=== PATIENT | female | born 1950 | race American Indian/Alaskan Native ===

== ENCOUNTER 2016-08-04 10:09 | Emergency (ER) | payer OTHER, MEDICARE, MEDICAID ==
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
--- NOTE | 2016-08-04 13:35 | Cat Scan Report ---
CT scan of head without contrast: Findings: Ventricles are normal in size and midline in location. No evidence of acute ischemia, hemorrhage or mass. No extra-axial fluid collection. Normal base of the cerebellum. Normal sinuses and mastoid air cells. Impression: No acute intracranial abnormality.
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
[2016-08-04 14:17] VITALS: BP 190/96
== END 2016-08-04 14:16 | disposition home or self-care (01) ==
LOC: ED 10:09
DX: S16.1XXA Strain of muscle, fascia and tendon at neck level, initial encounter (principal); S29.019A Strain of muscle and tendon of unspecified wall of thorax, initial encounter; I10 Essential (primary) hypertension; K21.9 Gastro-esophageal reflux disease without esophagitis; M19.90 Unspecified osteoarthritis, unspecified site; V89.2XXA Person injured in unspecified motor-vehicle accident, traffic, initial encounter; Y93.89 Activity, other specified; Y99.9 Unspecified external cause status; Y92.410 Unspecified street and highway as the place of occurrence of the external cause
CPT/HCPCS: 70450; 72072; 72125

== ENCOUNTER 2017-01-23 11:38 | Outpatient (CLI) | payer MEDICARE ==
--- NOTE | 2017-01-23 16:36 | Mammography Report ---
BILATERAL DIGITAL SCREENING MAMMOGRAM with CAD: 01/23/17 11:38:00 CLINICAL: Routine screening. COMPARISON:01/03/16 FINDINGS: The breasts are almost entirely fatty.Right upper outer biopsy clip. No mass, architectural distortion or suspicious calcifications. IMPRESSION: No mammographic evidence of malignancy. BI-RADS CATEGORY: 2 -- Benign RECOMMENDATION: Routine mammographic screening in one year. COMMENT: Patient follow-up letters are generated by our [employer] application.
== END 2017-01-23 11:39 | disposition home or self-care (01) ==
LOC: SPVWC 11:38
PROVIDERS: ATTEND General Practice
DX: Z12.31 Encounter for screening mammogram for malignant neoplasm of breast (principal)
CPT/HCPCS: 77067; G0202

== ENCOUNTER 2017-09-18 07:49 | Emergency (ER) | payer MEDICARE ==
--- NOTE | 2017-09-18 10:29 | Emergency Department Report ---
ED Upper Extremity Inj HPI - General Chief Complaint: Shoulder Injury Stated Complaint: FALL A MONTH AGO Time Seen by Provider: 09/18/17 09:02 Source: patient Mode of arrival: Ambulatory Limitations: No Limitations - History of Present Illness Initial Comments: This is a 67-year-old male nontoxic, well nourished in appearance, no acute signs of distress presents to the ED with c/o of left shoulder pain status post fall that occurred a couple of weeks ago. Patient stated it has been followed up with a orthopedic doctor and had normal x-ray results and stated that she received a steroid injection shot and some pain medication. She stated that symptoms of pain has not resolved. Patient denies any MRI done. She denies that orthopedic's concern about a rotator cuff tear. Patient stated that he did not have any trauma to the head or any other extremities. Patient denies any joint redness, joint swelling, fever, chills, nausea, vomiting, chest pain or shortness breath. Patient denies abnormal or decreased gait. Patient states allergies to penicillin and latex. Past medical history includes COPD and HIV. MD Complaint: Injury to:: left, shoulder -: week(s) Other Extremity Injury: Shoulder: Left Other Injuries: none Place: home Improves With: immobilization Worsens With: movement of extremity Context: fall, direct blow Associated Symptoms: denies other symptoms. denies: weakness, numbness, neck pain, suspects foreign body, nausea/vomiting, heard/felt popping sensat - Related Data Home Medications Medication Instructions Recorded Confirmed Last Taken Hydrochlorothiazide [HCTZ] 25 mg PO QDAY 05/17/16 05/17/16 05/17/16 09:00 clonazePAM [ Klonopin] 0.5 mg PO BID PRN 05/17/16 05/17/16 05/16/16 23:30 Previous Rx's Medication Instructions Recorded Last Taken Type Cyclobenzaprine [Flexeril] 10 mg PO TID PRN #20 tablet 08/04/16 Unknown Rx Naproxen [Naprosyn] 500 mg PO BID #30 tablet 08/04/16 Unknown Rx Acetaminophen [Tylenol Arthritis] 650 mg PO Q8H PRN #30 tablet.er 09/18/17 Unknown Rx Allergies Allergy/AdvReac Type Severity Reaction Status Date / Time latex Allergy Hives Verified 09/18/17 08:01 Penicillins Allergy Hives Verified 09/18/17 08:01 ED Review of Systems ROS: Stated complaint: FALL A MONTH AGO Other details as noted in HPI Constitutional: denies: chills, fever Eyes: denies: eye pain, eye discharge, vision change ENT: denies: ear pain, throat pain Respiratory: denies: cough, shortness of breath, wheezing Cardiovascular: denies: chest pain, palpitations Endocrine: no symptoms reported Gastrointestinal: denies: abdominal pain, nausea, diarrhea Genitourinary: denies: urgency, dysuria, discharge Musculoskeletal: arthralgia. denies: back pain, joint swelling Skin: denies: rash, lesions Neurological: denies: headache, weakness, paresthesias Psychiatric: denies: anxiety, depression Hematological/Lymphatic: denies: easy bleeding, easy bruising ED Past Medical Hx - Past Medical History Hx Hypertension: Yes Hx GERD: Yes Hx Renal Disease: No Hx Sickle Cell Disease: No Hx Arthritis: Yes Hx Asthma: No Hx COPD: No Hx HIV: No - Surgical History Hx Breast Surgery: Yes (AUGMENTATION 2007) Additional Surgical History: gastric bypass - Social History Smoking Status: Never Smoker Substance Use Type: Alcohol - Medications Home Medications: Home Medications Medication Instructions Recorded Confirmed Last Taken Type Hydrochlorothiazide [HCTZ] 25 mg PO QDAY 05/17/16 05/17/16 05/17/16 09:00 History clonazePAM [ Klonopin] 0.5 mg PO BID PRN 05/17/16 05/17/16 05/16/16 23:30 History Cyclobenzaprine [Flexeril] 10 mg PO TID PRN #20 tablet 08/04/16 Unknown Rx Naproxen [Naprosyn] 500 mg PO BID #30 tablet 08/04/16 Unknown Rx Acetaminophen [Tylenol Arthritis] 650 mg PO Q8H PRN #30 tablet.er 09/18/17 Unknown Rx ED Physical Exam - General Limitations: No Limitations General appearance: alert, in no apparent distress - Head Head exam: Present: atraumatic, normocephalic - Eye Eye exam: Present: normal appearance Pupils: Present: normal accommodation - ENT ENT exam: Present: normal exam, mucous membranes moist - Neck Neck exam: Present: normal inspection, full ROM. Absent: tenderness, meningismus - Respiratory Respiratory exam: Present: normal lung sounds bilaterally. Absent: respiratory distress, wheezes, rales, rhonchi, stridor, chest wall tenderness, accessory muscle use, decreased breath sounds, prolonged expiratory - Cardiovascular Cardiovascular Exam: Present: regular rate, normal rhythm, normal heart sounds. Absent: bradycardia, tachycardia, irregular rhythm, systolic murmur, diastolic murmur, rubs, gallop - GI/Abdominal GI/Abdominal exam: Present: soft, normal bowel sounds - Extremities Exam Extremities exam: Present: normal inspection, full ROM, tenderness, normal capillary refill. Absent: joint swelling - Expanded Upper Extremity Exam Left General: Present: normal inspection Shoulder Exam: Present: normal inspection, full ROM, tenderness. Absent: swelling, abrasion, laceration, ecchymosis, deformity, dislocation, erythema, tenderness over AC joint Upper Arm exam: Present: normal inspection, full ROM. Absent: tenderness, swelling Elbow exam: Present: normal inspection, full ROM. Absent: tenderness, swelling Forearm Wrist exam: Present: normal inspection, full ROM. Absent: tenderness, swelling Hand Wrist exam: Present: normal inspection, full ROM. Absent: tenderness, swelling Neuro motor exam: Present: wrist extension intact, thumb opposition intact, thumb IP flexion intact, thumb adduction intact, fingers 2-5 abduction intact Neurosensory exam: Present: 2-point discrimination, radial nerve intact, ulnar nerve intact, median nerve intact Vascular: Present: vascular compromise, normal capillary refill, radial pulse, brachial pulse, ulnar pulse - Back Exam Back exam: Present: normal inspection, full ROM. Absent: tenderness, CVA tenderness (R), CVA tenderness (L), muscle spasm, paraspinal tenderness, vertebral tenderness, rash noted - Neurological Exam Neurological exam: Present: alert, oriented X3, normal gait - Psychiatric Psychiatric exam: Present: normal affect, normal mood - Skin Skin exam: Present: warm, dry, intact, normal color. Absent: rash ED Course Vital Signs 09/18/17 08:01 Temperature 98.7 F Pulse Rate 88 Respiratory 16 Rate Blood Pressure 167/86 O2 Sat by Pulse 98 Oximetry - Reevaluation(s) Reevaluation #1: 09/18/17 10:27 Patient is speaking in full sentences with no signs of distress noted. ED Medical Decision Making - Medical Decision Making This is a 67-year-old female that presents with left shoulder strain. Patient is stable and was examined by me. I referred patient to an orthopedic doctor for further evaluation for possible MRI. X-ray has been obtained and dictated by the radiologist Dr. Ashton and report was faxed with no fractures and arthritis. Patient is notified of the x-ray report with noted by the patient. Patient does have normal gait with no tenderness and no joint swelling. No ecchymosis. no joint redness or swelling. Not warm to touch. No signs of cellulites present. Patient received a shoulder sling. Patient was instructed to RICE therapy. Patient received Motrin for pain. Patient is discharged with Tylenol arthritis. At time of discharge, the patient does not seem toxic or ill in appearance. No acute signs of distress noted. Patient agrees to discharge treatment plan of care. No further questions noted by the patient. Critical care attestation.: If time is entered above; I have spent that time in minutes in the direct care of this critically ill patient, excluding procedure time. ED Disposition Clinical Impression: Left shoulder strain Qualifiers: Encounter type: initial encounter Qualified Code(s): S46.912A - Strain of unspecified muscle, fascia and tendon at shoulder and upper arm level, left arm , initial encounter Disposition: DC- TO HOME OR SELFCARE Is pt being admited?: No Does the pt Need Aspirin: No Condition: Stable Instructions: Rotator Cuff Injury (ED), RICE Therapy (ED) Additional Instructions: Follow-up with a orthopedic doctor in 3-5 days or if symptoms worsen and continue return to emergency room as soon as possible. Prescriptions: Acetaminophen [Tylenol Arthritis] 650 mg PO Q8H PRN #30 tablet.er PRN Reason: Pain Referrals: ALEXEI MCGILL MD [Primary Care Provider] - 3-5 Days ETHAN GANDHI MD [Referring] - 3-5 Days JANNY MCDANIEL MD [Staff Physician] - 3-5 Days [facility] [Outside] - 3-5 Days
[2017-09-18 10:39] VITALS: BP 175/91
--- NOTE | 2017-09-19 12:14 | XRay Report ---
Left shoulder 3 views: History: Shoulder pain. Findings: Mild arthritic changes a.c. joint and glenohumeral joint. No fracture dislocation or soft tissue calcification. Impression: Mild arthritic changes left shoulder.
== END 2017-09-18 10:39 | disposition home or self-care (01) ==
LOC: ED 07:49
DX: S46.912A Strain of unspecified muscle, fascia and tendon at shoulder and upper arm level, left arm, initial encounter (principal); W18.30XA Fall on same level, unspecified, initial encounter; Y93.89 Activity, other specified; Y92.89 Other specified places as the place of occurrence of the external cause; Y99.8 Other external cause status

== ENCOUNTER 2017-10-02 10:04 | Outpatient (CLI) | payer MEDICARE ==
--- NOTE | 2017-10-02 12:27 | Magnetic Resonance Report ---
MRI UPPER EXTREMITY JOINT LEFT WITHOUT CONTRAST HISTORY: Pain in left shoulder. TECHNIQUE: Multiple T1 and T2-weighted images with and without fat suppression. COMPARISON: Left shoulder films dated 09/18/17. FINDINGS: MRI demonstrates a focal full-thickness tear in the distal, anterior supraspinatus tendon measuring approximately 8 mm in diameter. This appears to involve the rotator cuff interval. The infraspinatus, teres minor and subscapularis tendons appear intact. The biceps tendon and its anchor upon the superior labrum are intact. No gross labral defect or SLAP lesion. The bone marrow signal throughout the shoulder is within normal limits. Mild osteoarthritic changes are noted at the glenohumeral joint and acromioclavicular joint. No convincing findings of impingement. Small joint effusion and small fluid in the subacromial/subdeltoid bursa are noted. IMPRESSION: Focal full-thickness tear in the distal supraspinatus tendon as outlined above. Mild osteoarthritis.
== END 2017-10-02 10:05 | disposition home or self-care (01) ==
LOC: MRI 10:04
PROVIDERS: ATTEND Orthopaedic Surgery
DX: M19.012 Primary osteoarthritis, left shoulder (principal); K21.9 Gastro-esophageal reflux disease without esophagitis

== ENCOUNTER 2017-11-15 08:41 | Day surgery (SDC) | payer MEDICARE ==
[~2017-11-15 08:41] MED LIST: VANCOMYCIN PHARMACY TO DOSE IV SCH; VANCOMYCIN/NS 1 GM/250 ML 1 GM/250 ML BAG IV SCH; VERSED IV NR
[2017-11-15] MEDS: LACTATED RINGERS 1,000 ML IV SCH ×2 (09:25→15:53)
--- NOTE | 2017-11-15 09:58 | Anesthesia Day of Surgery ---
Anesthesia Day of Surgery - Day of Surgery Patient Examined: Yes Patient H&P Reviewed: Yes Patient is NPO: Yes
--- NOTE | 2017-11-15 09:58 | Anesthesia Consultation ---
Anesthesia Consult and Med Hx Date of service: 11/15/17 - Airway Anesthetic Teeth Evaluation: Poor, Partials ROM Head & Neck: Adequate Mental/Hyoid Distance: Adequate Mallampati Class: Class II Intubation Access Assessment: Probably Good - Pulmonary Exam CTA: Yes - Cardiac Exam Cardiac Exam: RRR - Pre-Operative Health Status ASA Pre-Surgery Classification: ASA3 Proposed Anesthetic Plan: General Nerve Block: IS - Pulmonary Hx Smoking: No Hx Asthma: No COPD: No Hx Sleep Apnea: No (OC PRE SCREEN LOW RISK) - Cardiovascular System Hx Hypertension: Yes (ONLY ON HCTZ PRN FOR EDEMA) - Central Nervous System Hx Psychiatric Problems: No - Gastrointestinal Hx Gastroesophageal Reflux Disease: No (h/o gastric bypass) - Endocrine Hx Renal Disease: No - Hematic Hx Anemia: No Hx Sickle Cell Disease: No - Other Systems Hx Alcohol Use: No Hx Substance Use: No Hx Cancer: No Hx Obesity: No
[2017-11-15] MEDS ORDERED: TORADOL IV PRN (10:00)
[2017-11-15] MEDS ORDERED: ZOFRAN IV PRN (10:00)
[2017-11-15] MEDS ORDERED: DILAUDID IV PRN (10:00)
[2017-11-15] MEDS ORDERED: BENADRYL ONE (11:46)
[2017-11-15] MEDS ORDERED: XYLOCAINE MPF 2% ONE (12:38)
[2017-11-15] MEDS ORDERED: DILAUDID ONE (12:38)
[2017-11-15] MEDS ORDERED: DIPRIVAN 10 MG/ML IV ONE (12:38)
[2017-11-15] MEDS ORDERED: ZEMURON IV ONE (12:38)
[2017-11-15 13:40] VITALS: BP 125/69
== END 2017-11-15 17:50 | disposition home or self-care (01) ==
LOC: OR 08:41
PROVIDERS: ATTEND Orthopaedic Surgery
DX: M75.102 Unspecified rotator cuff tear or rupture of left shoulder, not specified as traumatic (principal); I10 Essential (primary) hypertension; K21.9 Gastro-esophageal reflux disease without esophagitis; M19.90 Unspecified osteoarthritis, unspecified site; F41.9 Anxiety disorder, unspecified; Z91.040 Latex allergy status; Z88.0 Allergy status to penicillin; Z88.1 Allergy status to other antibiotic agents; Z98.84 Bariatric surgery status; Z98.890 Other specified postprocedural states; Z53.8 Procedure and treatment not carried out for other reasons
CPT/HCPCS: 36415; 84132; J1170; J1200; J2250; J2704; J3370; J7120

== ENCOUNTER 2018-01-24 10:54 | Outpatient (CLI) | payer MEDICARE ==
--- NOTE | 2018-01-24 15:11 | Mammography Report ---
BILATERAL DIGITAL SCREENING MAMMOGRAM with CAD: 01/24/18 10:54:00 CLINICAL: Routine screening. COMPARISON:01/23/17 FINDINGS: The breasts are almost entirely fatty.A right upper outer periareolar biopsy clip. Bilateral benign calcifications. No mass, architectural distortion or suspicious calcifications. IMPRESSION: No mammographic evidence of malignancy. BI-RADS CATEGORY: 2 -- Benign RECOMMENDATION: Routine mammographic screening in one year. COMMENT: Patient follow-up letters are generated by our [email or web address] application.
== END 2018-01-24 10:55 | disposition home or self-care (01) ==
LOC: SPVWC 10:54
PROVIDERS: ATTEND General Practice
DX: Z12.31 Encounter for screening mammogram for malignant neoplasm of breast (principal); I10 Essential (primary) hypertension; K21.9 Gastro-esophageal reflux disease without esophagitis; M19.90 Unspecified osteoarthritis, unspecified site
CPT/HCPCS: 77067

== ENCOUNTER 2019-01-30 14:10 | Outpatient (CLI) | payer MEDICARE ==
--- NOTE | 2019-01-30 16:43 | Mammography Report ---
DIGITAL SCREENING MAMMOGRAM WITH CAD, 01/30/2019 INDICATION: Routine screening mammography. TECHNIQUE: Digital bilateral 2D mammography was obtained in the craniocaudal and mediolateral obliq ue projections. This examination was interpreted with the benefit of Computer-Aided Detection analysi s. COMPARISON: 01/24/2018 and 01/03/2016 FINDINGS: Breast Density: There are scattered areas of fibroglandular density. A right asymmetry on the MLO view requires additional imaging. No architectural distortion or suspici ous calcifications. There is no evidence of dominant mass, suspicious calcifications or architectural distortion in the left breast. IMPRESSION: Right asymmetry requiring additional imaging. Recommend recall for right lateral and MLO spot compression views and right breast ultrasound if needed. Follow up recommendation: Special View: Spot Category 0: Incomplete. Needs additional imaging evaluation and/or prior mammograms for comparison. A "normal" or negative report should not discourage follow up or biopsy of a clinically significant f inding. A written summary of these findings will be mailed to the patient. The patient will be entered into a mammography reporting system which will generate a reminder letter for the patient's next appointmen t at the appropriate interval. The [employer] recommends yearly mammograms starting at age 40 and continuing as l jessica as a woman is in good health. Breast MRI is recommended for women with an approximate 20-25% or greater lifetime risk of breast cancer, including women with a strong family history of breast or ova dilan cancer or who have been treated for Hodgkin's disease. Signer Name: Jeramie Owens MD Signed: 01/30/2019 4:39 PM Workstation Name: [id number]
== END 2019-01-30 14:11 | disposition home or self-care (01) ==
LOC: SPVWC 14:10
PROVIDERS: ATTEND Hospitalist
DX: Z12.31 Encounter for screening mammogram for malignant neoplasm of breast (principal); K21.9 Gastro-esophageal reflux disease without esophagitis; I10 Essential (primary) hypertension; M19.90 Unspecified osteoarthritis, unspecified site
CPT/HCPCS: 77067

== ENCOUNTER 2019-02-04 14:39 | Outpatient (CLI) | payer MEDICARE ==
--- NOTE | 2019-02-04 15:17 | Mammography Report ---
DIGITAL DIAGNOSTIC MAMMOGRAM WITH CAD, 02/04/2019 INDICATION: Recalled for asymmetry. TECHNIQUE: Digital right mammographic imaging was performed. Spot compression views were obtained. This examination was interpreted with the benefit of Computer-aided Detection analysis. COMPARISON: 01/30/2019 FINDINGS: Breast Density: There are scattered areas of fibroglandular density. There is no evidence of dominant mass, suspicious calcifications or architectural distortion in the r ight breast. Satisfactory effacement of asymmetry on a spot compression view. IMPRESSION: No mammographic evidence of malignancy. Follow up recommendation: Routine yearly BI-RADS Category 2: Benign. A "normal" or negative report should not discourage follow up or biopsy of a clinically significant f inding. A written summary of these findings will be mailed to the patient. The patient will be entered into a mammography reporting system which will generate a reminder letter for the patient's next appointmen t at the appropriate interval. According to the [employer], yearly mammograms are recommended starting at age 40 and continuing as long as a woman is in good health. Breast MRI is recommended for women with an antonina roximately 20-25% or greater lifetime risk of breast cancer, including women with a strong family his tory of breast or ovarian cancer and women who have been treated for Hodgkin's disease. Signer Name: Jeramie Owens MD Signed: 02/04/2019 3:13 PM Workstation Name: [id number]
== END 2019-02-04 14:40 | disposition home or self-care (01) ==
LOC: SPVWC 14:39
PROVIDERS: ATTEND Hospitalist
DX: N63.10 Unspecified lump in the right breast, unspecified quadrant (principal); I10 Essential (primary) hypertension; K21.9 Gastro-esophageal reflux disease without esophagitis; M19.90 Unspecified osteoarthritis, unspecified site

== ENCOUNTER 2020-02-03 11:16 | Outpatient (CLI) | payer MEDICARE ==
--- NOTE | 2020-02-04 08:31 | Mammography Report ---
DIGITAL SCREENING MAMMOGRAM WITH CAD, 02/03/2020 INDICATION: Routine screening mammography. TECHNIQUE: Digital bilateral 2D mammography was obtained in the craniocaudal and mediolateral obliq ue projections. This examination was interpreted with the benefit of Computer-Aided Detection analysi s. COMPARISON: 01/30/2019, 01/24/2018, 01/23/2017, 01/03/2016 FINDINGS: Breast Density: There are scattered areas of fibroglandular density. There is no evidence of dominant mass, suspicious calcifications or architectural distortion in eithe r breast. Architectural changes from bilateral breast reduction are again noted. IMPRESSION: Follow up recommendation: Routine yearly BI-RADS Category 2: Benign. A "normal" or negative report should not discourage follow up or biopsy of a clinically significant f inding. A written summary of these findings will be mailed to the patient. The patient will be entered into a mammography reporting system which will generate a reminder letter for the patient's next appointmen t at the appropriate interval. The [employer] recommends yearly mammograms starting at age 40 and continuing as l jessica as a woman is in good health. Breast MRI is recommended for women with an approximate 20-25% or greater lifetime risk of breast cancer, including women with a strong family history of breast or ova dilan cancer or who have been treated for Hodgkin's disease. Signer Name: Anna Peralta MD Signed: 02/04/2020 8:26 AM Workstation Name: [id number]
== END 2020-02-03 11:17 | disposition home or self-care (01) ==
LOC: SPVWC 11:16
PROVIDERS: ATTEND Family Medicine
DX: Z12.31 Encounter for screening mammogram for malignant neoplasm of breast (principal)
CPT/HCPCS: 77067

== ENCOUNTER 2020-02-27 06:14 | Day surgery (SDC) | payer MEDICARE ==
[2020-02-27] MEDS ORDERED: BACTERIOSTATIC SODIUM CHLORIDE 0.9% 30 ML VIAL INFILTRATI ONE (06:25)
[2020-02-27] MEDS ORDERED: SODIUM CHLORIDE 0.9% 1000 ML 1,000 ML ONE (06:25)
[2020-02-27] MEDS ORDERED: SODIUM CHLORIDE 0.9% 1000 ML 1,000 ML IV SCH (07:00)
--- NOTE | 2020-02-27 07:38 | Anesthesia Consultation ---
Anesthesia Consult and Med Hx Date of service: 02/27/20 - Airway Anesthetic Teeth Evaluation: Poor ROM Head & Neck: Adequate Mental/Hyoid Distance: Adequate Mallampati Class: Class II Intubation Access Assessment: Probably Good - Pulmonary Exam CTA: Yes - Cardiac Exam Cardiac Exam: RRR - Pre-Operative Health Status ASA Pre-Surgery Classification: ASA2 Proposed Anesthetic Plan: MAC - Pulmonary Hx Smoking: No Hx Respiratory Symptoms: No Hx Sleep Apnea: No (OC PRE SCREEN LOW RISK) - Cardiovascular System Hx Hypertension: Yes Hx Heart Attack/AMI: No Hx Percutaneous Transluminal Coronary Angioplasty (PTCA): No - Central Nervous System CVA: No - Gastrointestinal Hx Gastroesophageal Reflux Disease: No (erosive esophagitis) - Endocrine Hx Renal Disease: No Hx Liver Disease: No Hx Insulin Dependent Diabetes: No Hx Non-Insulin Dependent Diabetes: No Hx Thyroid Disease: No
--- NOTE | 2020-02-27 07:38 | Anesthesia Day of Surgery ---
Anesthesia Day of Surgery - Day of Surgery Patient Examined: Yes Patient H&P Reviewed: Yes Patient is NPO: Yes
[2020-02-27] MEDS ORDERED: LIDOCAINE MPF (2%) 20 MG/1 ML VIAL 5 ML ONE (08:19)
[2020-02-27] MEDS ORDERED: propofoL 200 MG/20 ML VIAL IV ONE ×2 (08:19→08:41)
--- NOTE | 2020-02-27 09:10 | Procedure Note ---
Date of procedure: 02/27/20 Pre-op diagnosis: H/O Colon Polyp/ Colon PolypScreening Post-op diagnosis: other (Sessile 1.5 cm Cecal Polyp, removed by Hot,Snare Polypectomy and retrieved with a Devine Net; No Rectal Polyp noted (previously history of)/ Minor, Internal Hemorrhoid) Procedure: Colonoscoy with Hot Snare Polypectomy and use ofRoth Net to Retrieve the Polyp Anesthesia: MAC Surgeon: GRACY WHITTAKER Estimated blood loss: minimal Pathology: list Specimen disposition: to lab Condition: stable Disposition: same day (Avoid aspirin and NSAID for 5 days; otherwise resume home medication and follow up in 1 to 2 weeks ([phone]).)
[2020-02-27 09:34] VITALS: BP 123/61
--- NOTE | 2020-02-27 09:43 | Operative Report ---
INDICATIONS: This is a 69-year-old -[place] female who has a prior history of colon polyps in the rectum that has previously been removed in a piecemeal fashion. Repeat colonoscopy was done to make sure that there was not any recurrence of any polyps. DESCRIPTION OF PROCEDURE: The procedure was done after getting informed consent. Initial rectal exam was unremarkable. Instrument was passed through the rectum onto the cecum. At the very end of the cecum, there was a 1.5 cm sessile polyp noted. This was removed by hot snare polypectomy and then retrieved by using a snare. The remaining part of the cecum, ascending colon, transverse colon, descending colon, and sigmoid showed normal mucosa. There were no additional polyps, colitis or diverticular disease noted in the rectum. On the retroverted view showed some minor internal hemorrhoids. On the previous site where the polyp was noted, had been tattooed with Leticia ink. There were no additional polyps noted. There was minimal bleeding associated with the procedure. No complications associated with the procedure. ASSESSMENT: History of colon polyp. No rectal polyp at present. Previous polyp was in the rectum. There was one sessile cecal polyp noted, which was 1.5 cm that was removed by hot snare polypectomy and retrieved using a Devine Net and minor internal hemorrhoid. PLAN: To have the patient avoid aspirin and aspirin-related products for the next few days and follow up in the office in 1-2 weeks' time and otherwise resume home medication. Procedure was done in the GI lab with assistance of the GI lab team, which included RN, Sandy Nye, malorie Cook and with assistance of anesthesia. JOB# [id number] DONNIE/KATERIN
--- NOTE | 2020-02-27 12:05 | Post Anesthesia Evaluation ---
- Post Anesthesia Evaluation Patient Participated: Yes Airway Patent: Yes Stable Respiratory Function: Yes Nausea/Vomiting: No Temp > 96.8F: Yes Pain Manageable: Yes Adequeate Hydration: Yes Anesthesia Complications: No
== END 2020-02-27 06:15 | disposition home or self-care (01) ==
LOC: GIO 06:14
DX: K59.09 Other constipation (principal); D12.0 Benign neoplasm of cecum; K64.8 Other hemorrhoids; E78.00 Pure hypercholesterolemia, unspecified; I10 Essential (primary) hypertension; K21.00 Gastro-esophageal reflux disease with esophagitis, without bleeding; M19.90 Unspecified osteoarthritis, unspecified site; F41.9 Anxiety disorder, unspecified; Z98.890 Other specified postprocedural states; Z86.010 Personal history of colon polyps; Z91.040 Latex allergy status; Z88.0 Allergy status to penicillin; Z88.8 Allergy status to other drugs, medicaments and biological substances; Z79.899 Other long term (current) drug therapy; Z91.81 History of falling
CPT/HCPCS: 45385; 88305; J2704; J7030

== ENCOUNTER 2021-02-04 11:36 | Outpatient (CLI) | payer MEDICARE ==
--- NOTE | 2021-02-07 10:44 | Mammography Report ---
DIGITAL SCREENING MAMMOGRAM WITH CAD, 02/04/2021 CLINICAL INFORMATION / INDICATION: Routine screening mammography. SCREENING MAMMO TECHNIQUE: Digital bilateral 2D mammography was obtained in the craniocaudal and mediolateral obliqu e projections. This examination was interpreted with the benefit of Computer-Aided Detection analysis . COMPARISON: 02/03/2020 FINDINGS: Breast Density: There are scattered areas of fibroglandular density. No dominant mass, suspicious calcifications, or architectural distortion in either breast. IMPRESSION: No mammographic evidence of malignancy. Follow up recommendation: Routine yearly BI-RADS Category 1: Negative. A "normal" or negative report should not discourage follow up or biopsy of a clinically significant f inding. A written summary of these findings will be mailed to the patient. The patient will be entered into a mammography reporting system which will generate a reminder letter for the patient's next appointmen t at the appropriate interval. The [employer] recommends yearly mammograms starting at age 40 and continuing as l jessica as a woman is in good health. Breast MRI is recommended for women with an approximate 20-25% or greater lifetime risk of breast cancer, including women with a strong family history of breast or ova dilan cancer or who have been treated for Hodgkin's disease. Signer Name: Rei Jaramillo MD Signed: 02/07/2021 10:40 AM Workstation Name: [employer]
== END 2021-02-04 11:37 | disposition home or self-care (01) ==
LOC: SPVWC 11:36
DX: Z12.31 Encounter for screening mammogram for malignant neoplasm of breast (principal)
CPT/HCPCS: 77067

== ENCOUNTER 2021-03-24 07:49 | Day surgery (SDC) | payer MEDICARE ==
[~2021-03-24 07:49] MED LIST changes: +SODIUM CHLORIDE 0.9% 1000 ML 1,000 ML IV SCH; -VANCOMYCIN PHARMACY TO DOSE IV SCH; -VANCOMYCIN/NS 1 GM/250 ML 1 GM/250 ML BAG IV SCH; -VERSED IV NR
--- NOTE | 2021-03-24 08:24 | Anesthesia Consultation ---
Anesthesia Consult and Med Hx Date of service: 03/24/21 - Airway Anesthetic Teeth Evaluation: Good, Partials (lower) ROM Head & Neck: Adequate Mental/Hyoid Distance: Adequate Mallampati Class: Class II Intubation Access Assessment: Probably Good - Pre-Operative Health Status ASA Pre-Surgery Classification: ASA2 - Pulmonary Hx Smoking: No Hx Asthma: No Hx Respiratory Symptoms: No COPD: No Hx Sleep Apnea: No (OC PRE SCREEN LOW RISK) - Cardiovascular System Hx Hypertension: Yes Hx Heart Attack/AMI: No Hx Percutaneous Transluminal Coronary Angioplasty (PTCA): No - Central Nervous System CVA: No Hx Psychiatric Problems: No - Gastrointestinal Hx Ulcer: Yes (erosive esophagitis) Hx Gastroesophageal Reflux Disease: Yes (s/p gastric bypass (1998)) - Endocrine Hx Renal Disease: No Hx Liver Disease: No Hx Insulin Dependent Diabetes: No Hx Non-Insulin Dependent Diabetes: No Hx Thyroid Disease: No - Hematic Hx Anemia: No Hx Sickle Cell Disease: No - Other Systems Hx Alcohol Use: No Hx Substance Use: No Hx Cancer: No Hx Obesity: Yes (s/p gastric bypass)
--- NOTE | 2021-03-24 08:25 | Anesthesia Day of Surgery ---
Anesthesia Day of Surgery - Day of Surgery Patient Examined: Yes Patient H&P Reviewed: Yes Patient is NPO: Yes
[2021-03-24] MEDS ORDERED: propofoL 200 MG/20 ML VIAL IV ONE ×4 (08:57→09:25)
[2021-03-24] MEDS ORDERED: LIDOCAINE MPF (2%) 20 MG/1 ML VIAL 5 ML ONE (09:20)
--- NOTE | 2021-03-24 09:43 | Procedure Note ---
Date of procedure: 03/24/21 Pre-op diagnosis: GERD/ S/P Gastric Bypass/ H/o Colon Polyps Post-op diagnosis: other (Mild to Moderate Erosive Esophagitis/ Small Gastric Remnant (s/p Gastric Bypass)/ Gastric, Reactive mucosal Changes/Gastritis/Colon Polyps (Cecum and Recto-Sigmoid)/ Minor,Internal Hemorrhoids) Procedure: EGD with Biopsy and Colonoscopy and Cold Snare Polypectomy Anesthesia: MAC Surgeon: GRACY WHITTAKER Estimated blood loss: minimal Pathology: list Specimen disposition: to lab Condition: stable Disposition: same day (Treat with PPI; avoid aspirinand NSAID for 5 days, otherwise resume home medication. Follow up in 1 to 2 weeks ([phone]).)
--- NOTE | 2021-03-24 09:52 | Operative Report ---
DATE OF SURGERY: 03/24/2021 PROCEDURE PERFORMED: EGD with biopsy. INDICATIONS: This is a 70-year-old -[place] female who is status post gastric bypass, has GERD symptoms and he has a very small gastric remnant and EGD was done to assess for the severity of the erosive esophagitis. DESCRIPTION OF PROCEDURE: Procedure was done after getting informed consent with MAC anesthesia. The instrument was passed through the hypopharynx into the esophagus, which showed [id number] distal erosive esophagitis. Photodocumentation and biopsy was obtained from this area. The stomach remnant close to the esophagus showed some reactive changes. Photodocumentation and biopsies were done from this area as well with minimal bleeding as well as from the anastomotic site to rule out for any H. pylori. The duodenum appeared to be normal. ASSESSMENT: GERD symptoms with [id number] distal erosive esophagitis, reactive changes in the gastric remnant, gastritis, status post gastric bypass. PLAN: To continue treatment with PPI, have the patient avoid aspirin and aspirin-related products for the next few days, to do a colonoscopy since the patient has a prior history of colon polyps and have the patient resume home medication. Follow up in the office in 1-2 weeks' time. Procedure was done in the GI lab with assistance of the GI lab team, which included the GI nurse, the engineering laboratory technician and with assistance of anesthesia. TID: [id number] RECEIPT: [id number] SEAN
[2021-03-24 11:00] VITALS: BP 134/75
--- NOTE | 2021-03-24 11:53 | Operative Report ---
DATE OF SURGERY: 03/24/2021 PROCEDURE: Colonoscopy with cold snare polypectomy. INDICATIONS: This is a 70-year-old -[place] female who has a history of a gastric bypass, had an EGD done because of history of severe GERD symptoms. Prior to the colonoscopy, EGD showed presence of mild to moderate erosive esophagitis, reactive gastric mucosal changes, gastritis and status post gastric bypass. Colonoscopy was done since the patient has a prior history of colon polyps to make sure that there was not any recurrence of any polyps. DESCRIPTION OF PROCEDURE: Procedure was done after informed consent with MAC anesthesia. Initial rectal examination was unremarkable. The instrument was passed through the rectum onto the cecum, which was identified with ileocecal valve and appendiceal orifice. Visualization was fair to good. There was a 10 mm sessile polyp noted in the cecum that was removed by cold snare polypectomy and retrieved using a biopsy forceps. The remaining part of the proximal colon and the transverse colon as well as the descending and most of the sigmoid colon showed normal mucosa. There were no additional polyps or diverticular disease. In the rectosigmoid area, there was another 10 mm polyp noted that was again removed by cold snare polypectomy and also retrieved using a biopsy forceps. There was minimal bleeding from the polypectomy sites and the rectum showed some minor internal hemorrhoid on the retroverted view. ASSESSMENT: Colon polyp screening, prior history of colon polyps. Two colon polyps noted in this examination, one in the cecum and one in the rectosigmoid, both removed by cold snare polypectomy and retrieved using the biopsy forceps and minor internal hemorrhoid. PLAN: To have the patient avoid aspirin and aspirin-related products for the next few days. Treat the patient with PPI because of the EGD findings of esophagitis and gastritis. Await for the biopsy results. If the biopsy results require any additional changes in therapy they will be done. The patient will be asked to follow up in the office in 1-2 weeks' time. Procedure was done in the GI lab with assistance of the GI lab team, which included the GI nurse, the airborne weapons technical manager and with assistance of Anesthesia. TID: [id number] RECEIPT: [id number] DONNIE/SHERYL
--- NOTE | 2021-03-24 13:44 | Post Anesthesia Evaluation ---
- Post Anesthesia Evaluation Patient Participated: Yes Airway Patent: Yes Stable Respiratory Function: Yes Nausea/Vomiting: No Temp > 96.8F: Yes Pain Manageable: Yes Adequeate Hydration: Yes Anesthesia Complications: No Block Receding Appropriately: Not Applicable Patient on Ventilator: No
== END 2021-03-24 07:50 | disposition home or self-care (01) ==
LOC: GIO 07:49
DX: Z08 Encounter for follow-up examination after completed treatment for malignant neoplasm (principal); K64.8 Other hemorrhoids; D12.0 Benign neoplasm of cecum; K21.00 Gastro-esophageal reflux disease with esophagitis, without bleeding; K29.50 Unspecified chronic gastritis without bleeding; K63.89 Other specified diseases of intestine; K31.89 Other diseases of stomach and duodenum; I10 Essential (primary) hypertension; E78.00 Pure hypercholesterolemia, unspecified; F41.9 Anxiety disorder, unspecified; M19.90 Unspecified osteoarthritis, unspecified site; E66.9 Obesity, unspecified; G47.30 Sleep apnea, unspecified; Z86.010 Personal history of colon polyps; Z88.0 Allergy status to penicillin; Z91.040 Latex allergy status; Z88.8 Allergy status to other drugs, medicaments and biological substances; Z79.899 Other long term (current) drug therapy
CPT/HCPCS: 43239; 45380; 45385; 88305; 88342; J2704; J3490; J7030; J7120; Q0162